=== PATIENT | female | born 1940 | race Caucasian/White ===

== ENCOUNTER 2017-01-23 07:10 | Day surgery (SDC) | payer OTHER ==
[~2017-01-23] VITALS: Ht 154.9 cm; Wt 77.1 kg
[~2017-01-23 07:10] MED LIST: ACET325T51 PO; ALBU8.5H2 INHALATION; AMLO10TA3 PO; ASCO1500 PO; ASPI-973 PO; ATOR80TA PO; CARV25TA2 PO; CHOL100043 PO; CYAN500 PO; DOXA2TAB52 PO; EZET10TA PO; GLUC100016 PO; GUAI600T2 PO; INSU100V7 SUBQ; LORA10CA9 PO; Lactated Ringer's 1,000 ML IV ONE; MAGN64TA7 PO; METF500T4 PO; METF850T2 PO; MOME13HF3 IH; MULT-1018 PO; NAPR500T PO; OLP.1OP5 OCULAR; PYR50 PO; SPIR25TA3 PO; TOPI200T7 PO; [UNRECOGNIZED DRUG - OTHER] SUBQ
[2017-01-23] MEDS ORDERED: Glycopyrrolate 0.2 MG/ML 1mL Inj ONE (07:11)
[2017-01-23] MEDS ORDERED: Ketamine 10 mg/mL 20 mL Inj ONE (07:11)
[2017-01-23] MEDS ORDERED: Propofol 10,000 mCg/mL 20 mL Inj ONE (07:11)
[2017-01-23] MEDS ORDERED: Ondansetron 2 mg/mL 2 mL Inj ONE (07:11)
[2017-01-23 07:43] VITALS: BP 142/71; PULSE 57; RESP 16; O2SAT 95
--- NOTE | 2017-01-23 07:54 | PCM.HPANE ---
Patient Data Date of Service: Jan 23, 2017 Surgeon Admitting Provider: Attending Provider:David Yuen MD Primary Care Physician:Grace Velasquez MD Other Provider:Prieto Velázquez Anesthesia Reason for Visit Colon Polyp Ht/WT & BMI Height (Feet): 5 Height (Inches): 1 Weight (Kilograms): 77.11 Body Mass Index 32.00 Allergies Coded Allergies: Opioids - Morphine Analogues (Verified Allergy, Unknown, 01/22/17) JANIYA Inhibitors (Verified Adverse Reaction, Intermediate, KIDD, 01/22/17) Uncoded Allergies: narcotics (Allergy, Severe, "severe hallucinations, confusion", 08/26/11) Past Anesthesia History Anesthesia History: Denies:: Abnormal Airway, Anesthesia Reactions, Difficult Intubation, Fam Anesthesia Reaction, Fam Malignant Hypertherm, Malignant Hyperthermia Diabetes History Hx Diabetes?: Yes Type of Diabetes: Type II Glycemic Control: Insulin & Oral Medication Current Bedside Blood Glucose: 101 MRSA MRSA: No Medications Blood Thinner: Aspirin Last Dose Blood Thinner: Jan 22, 2017 Home Meds Incl Beta Silvano: Yes Date Beta Silvano Taken: Jan 22, 2017 Time Beta Silvano Taken: 1200 Reported Medications Olopatadine (Patanol)5 Ml Soln5 Ml OCULAR 01/22/17 Ezetimibe (Zetia)10 Mg Bwvdcd91 Mg PO DAILY 30 Days Ref 0 01/22/17 Cholecalciferol (Vitamin D3) (Vitamin D)1,000 Unit Tablet5,000 Unit PO DAILY #1 BOTTLE Ref 0 01/22/17 Ascorbic Acid (Vitamin C)1,500 Mg Tablet.er1,000 Mg PO DAILY 01/22/17 Pyridoxine (Vitamin B-6)50 Mg Qkhjmh133 Mg PO DAILY 01/22/17 Cyanocobalamin (Vitamin B12)500 Mcg Qxutpm961 Mcg PO DAILY 01/22/17 Acetaminophen 325 Mg Tablet1,000 Mg PO Q4H PRN For Fever Ref 0 01/22/17 Topiramate 200 Mg Fimvpe902 Mg PO BID Ref 0 01/22/17 Spironolactone 25 Mg Xctzpv74 Mg PO DAILY #30 TABLET Ref 0 01/22/17 Naproxen (Naprosyn)500 Mg Wydcqo307 Mg PO BID PRN For Pain Ref 0 01/22/17 Multivitamin (Multi Vitamin Daily)1 Each Tablet1 Each PO DAILY 30 Days Ref 0 01/22/17 Guaifenesin (Mucinex)600 Mg Tablet.er600 Mg PO BID 01/22/17 Metformin 850 Mg Wcbncd995 Mg PO BID Ref 0 01/22/17 Metformin 500 Mg Tablet1,000 Mg PO BID Ref 0 01/22/17 Magnesium Chloride (Mag64)64 Mg Tablet.er64 Mg PO TID 01/22/17 Loratadine 10 Mg Ugfoyin02 Mg PO DAILY 01/22/17 [lispro Prc] No Conflict Zcdsp54-60 Units SUBQ TID 01/22/17 Insulin Glargine (Lantus U100 Insulin Vial)100 Unit/Ml Vial1 Unit SUBQ BID #1 VIAL Ref 0 01/22/17 Glucosamine Sulfate 2Kcl (Glucosamine)1,000 Mg Tablet1,000 Mg PO BID 01/22/17 Doxazosin (Cardura)2 Mg Tablet2 Mg PO TID Ref 0 01/22/17 Carvedilol 25 Mg Uxwbyt32 Mg PO TID Ref 0 01/22/17 Atorvastatin (Lipitor)80 Mg Pinpjh27 Mg PO DAILY Ref 0 01/22/17 Aspirin 81 Mg Aggzyd99 Mg PO DAILY Ref 0 01/22/17 Mometasone Furoate (Asmanex Hfa)100 Mcg/Actuation Hfa.aer.ad13 Gm IH 01/22/17 Amlodipine 10 Mg Abvjuv63 Mg PO DAILY Ref 0 01/22/17 Discontinued Reported Medications Albuterol HFA (Proair HFA)8.5 Gm Hfa.aer.ad2 Puffs INHALATION Q4H #1 INHALER 01/22/17 Magnesium Chloride-Expunged Drug, Do Not Tim (Bytf-Bvd-Mmalebum Drug, Do Not Renew!)64 Mg Tabcr64 Mg PO DAILY 09/02/11 Carvedilol-Expunged Drug, Do Not Renew! 25 Mg Xnlkda84.5 Mg PO BID Take 1 1/2 tablet twice a day 09/02/11 AmLODIPine-Expunged Drug, Do Not Renew! 5 Mg Tablet5 Mg PO BID 09/02/11 Acetaminophen-Expunged Drug, Do Not Renew! (Tylenol-Expunged Drug, Do Not Renew! )325 Mg Clwjwe272 Mg PO PRN PRN 09/02/11 Levothyroxine-Expunged Drug, Do Not Renew! (Synthroid-Expunged Drug, Do Not Renew!)75 Mcg Wlllnb04 Mcg PO DAILY 09/02/11 Doxazosin-Expunged Drug, Do Not Renew! 2 Mg Tablet3 Mg PO BID Take 1 1/2 tablets twice a day 09/02/11 Haloperidol-Expunged Drug, Do Not Renew! (Haldol-Expunged Drug, Do Not Renew!)1 Mg Tab1 Mg PO HS Take at bedtime to help you sleep. 08/29/11 PEG 3350-Expunged Drug, Do Not Renew! (Miralax-Expunged Drug, Do Not Renew!)17 Gm/Pkt Lomeff96 Gm PO DAILY Mix packet in juice or water and drink daily. Do not take if you have 2 stools already that day. 08/29/11 Furosemide-Expunged Drug, Do Not Renew! (Lasix-Expunged Drug, Do Not Renew!)20 Mg Dhkubp24 Mg PO DAILY 08/29/11 Spironolactone-Expunged Drug, Do Not Renew! 25 Mg Fisppb89 Mg PO DAILY 08/29/11 Fluticasone-Expunged Drug, Do Not Renew! (Flovent Hfa-Expunged Drug, Do Not Renew!)10.6 Gm Aer.w.adap2 Puffs IH DAILY 08/26/11 Cholecalciferol-Expunged Drug, Do Not Renew! (Vitamin D3-Expunged Drug, Do Not Renew!)10,000 Unit Capsule5,000 Unit PO DAILY 08/26/11 Folic Acid-Expunged Drug, Do Not Renew! 0.4 Mg Tablet0.4 Mg PO DAILY 08/26/11 Fexofenadine-Expunged Drug, Choose New Med! 60 Mg Odzzmu10 Mg PO PRN as needed. 08/26/11 [Estrace 0.01% Crm] No Conflict Check Qw 08/26/11 Glucosamine Hcl 500 Mg Tablet1,500 Mg PO BID 08/26/11 [Nasonex 50mcg] No Conflict Check2 Sprays NS DAILY 08/26/11 Atorvastatin-Expunged Drug, Do Not Renew! 40 Mg Evfpxv88 Mg PO HS 08/26/11 Tocopherol-Expunged Drug, Do Not Renew! (Vitamin E-Expunged Drug, Do Not Renew!) 400 Unit Pgs076 Unit PO DAILY 08/26/11 [Vitamin B6] No Conflict Check1,000 Mg PO DAILY 08/26/11 Ezetimibe (Zetia)10 Mg Wccaix16 Mg PO DAILY 01/15/11 Ascorbic Acid-Expunged Drug, Do Not Renew! (Vitamin C-Expunged Drug, Do Not Renew!)1,000 Mg Tab.chew1,000 Mg PO DAILY 01/15/11 Cyanocobalamin (B-12)-Expunged Drug, Do Not R (Vitamin G-48-Hpzimbgk Drug, Do Not Renew!)250 Mcg Tab.sgpo156 Mcg PO DAILY 01/15/11 Olopatadine-Expunged Drug, Do Not Renew! (Patanol-Expunged Drug, Do Not Renew!) 5 Ml Drops2 Gtts OP BID PRN 01/15/11 Multivitamin (Daily Value)1 Each Tablet1 Each PO DAILY 01/15/11 Metformin-Expunged Drug, Do Not Renew! 850 Mg Hqaqml295 Mg PO BID 01/15/11 Insulin Lispro-Expunged Drug, Do Not Renew! (Humalog-Expunged Drug, Do Not Renew !)100 U/Ml Vial Sq Prn SLIDING SCALE 01/15/11 Insulin Glargine-Expunged Drug, Do Not Renew! (Lantus-Expunged Drug, Do Not Renew!)100 U/Ml Uuaeporer54 U Sq Hs 01/15/11 Aspirin-Expunged Drug, Do Not Renew! ([place] Aspirin-Expunged Drug, Do Not Renew)81 Mg Tab.chew81 Mg PO DAILY 01/15/11 Albuterol-Expunged Drug, Do Not Renew! 8.5 Gm Hfa.aer.ad2 Puffs IH QID PRN Take 2 puffs every 4 hours as needed for sohortness of breath 01/15/11 History History of ENT Problems?: No HEENT History: Denies:: Abnormal Airway Difficult Intubation Dysphagia Hearing Problem Denture Type: None Teeth Condition: Tooth Decay Hx of Heart Problems?: Yes Cardiovascular History: Positive for:: Cardiac Surgery (heart cath 2010, AVR 2010) Heart Murmur Hypertension Valvular Heart Disease (AVR 2010) Denies:: AICD Atrial Fibrillation Chest Pain Congestive Heart Failure Edema Irregular Heartbeat Pacemaker Thrombophlebitis Hx of Respiratory Problem?: Yes Respiratory History: Positive for:: Asthma Dyspnea Use of C-PAP Machine Use of Inhalers / NEBS Denies:: COPD Chest Surgery Cough Emphysema Hemoptysis Pneumonia Tuberculosis Other Resp Pertinent History: ALBUTEROL daily; productive cough x3 months Hx Neurologic Problems?: Yes Neurological History: Denies:: Alzheimer's Disease CVA Dementia Dizziness Headaches Parkinson's Disease Seizures TIA Hx of GI Problems?: Yes Gastrointestinal History: Denies:: Gastroesphageal Reflux Hx of Problems?: No Female Hx: Positive for:: Problems with Breasts? (hx of right breast lumpectomy) Denies:: Currently Endometriosis Pelvic Inflammatory Hx Musculoskeletal Problems?: Yes Musculoskeletal History: Positive for:: Back Injury (hx of low back pain) Musculoskeletal Trauma (hx of fx left foot 1988, fx left arm 1997) Denies:: Fibromyalgia Joint Replacement Hx of Psycho/Social Problems?: No Psycho Social History: Denies:: Anxiety Hx Depression Hx Surgeries?: Yes (LUMPECTOMY, AORTIC VALVE REPLACED) Hx Any Other Health Problems?: Yes Other History: Positive for:: Hospitalization Thyroid Disease (hypo) Denies:: Cancer Endocrine Disease History Blood Transfusions: Denies:: Blood Transfuse Reaction Blood Transfusions Hx Diabetes: YesBedside Blood Glucose: 101 Other Pertinent History: DIABETIC Hx Alcohol Use: NoHx Substance Use: No Smoking Status: Never Smoker Have You Smoked inLast 12 mo: No Stop/Bang Treated for Sleep Apnea?: Yes Do You Have a CPAP Machine?: Yes DARIN Risk Assessment: High Risk, =/>3 Yes Risk Assessment Category Category 1A: Patient has history of documented sleep apnea, and HAS NOT received any narcotic, sedative or anesthesia administration during this stay. Category 1B: Patient has history of documented sleep apnea, and HAS received any narcotic , sedative or anesthesia administration during this stay Category 2: Patient has SUSPECTED Obstructive Sleep Apnea, and HAS received any narcotic , sedative or anesthesia administration during this stay. Category 3: Patient has SUSPECTED Obstructive Sleep Apnea and HAS NOT received narcotic, sedative or anesthesia administration during this stay. Category 4: Outpatient in Procedural Areas with known sleep apnea or who screen positive for High Risk via the STOP/BANG questionnaire. Exam Exam Vital Signs Vital Signs Date Time Temp Pulse Resp B/P Pulse Ox O2 Delivery O2 Flow Rate FiO2 01/23/17 07:43 57 16 142/71 95 Room Air General Appearance: Alert, Oriented X3, Cooperative, No Acute Distress HEENT/AIRWAY: MP 3, Neck Movement (FROM), Mouth Opening (3), Other (TMD<3) Lungs: Normal Air Movement Heart: Exam Unremarkable, Regular Rate/Rhythm, Normal S1, Normal S2, No Murmurs /Rubs/Gallops Meds/Labs/Diagnostics Admission Meds Current Medications Lactated Ringer's (Lr) 1,000 ml @ 10 mls/hr Q24H ONCE IV Last administered on 01/23/17t 07:43; Start 01/23/17 at 06:00; Stop 01/24/17 at 05:59 Bedside Blood Glucose: 101 Plan Impression Patient chart reviewed, patient interviewed and anesthestic plan with risks, benefits, and alternatives discussed, and informed consent obtained. NPO per Anesth. Guidelines: Yes ASA Physical Status: ASA3 Severe Disease Anesthetic Plan: TIVA Bene/Risks/Altern/Consents: Yes HP Complete Prior to Induction: Yes Tony Euceda MD Jan 23, 2017 07:54
[2017-01-23 08:36] VITALS: BP 122/65; PULSE 67; RESP 14; O2SAT 94
[2017-01-23 08:45] VITALS: BP 131/66; PULSE 64; RESP 14; O2SAT 95
[2017-01-23 08:49] VITALS: BP 137/65; PULSE 64; RESP 14; O2SAT 97
--- NOTE | 2017-01-23 09:36 | ENDO ---
[address] [address] ENDOSCOPY PROCEDURE PATIENT: ERICK HAGAN : 1940 MR#: [id number] ADMIT: 01/23/2017 JOB ID: [id number] DATE OF SERVICE: 01/23/2017 PREOPERATIVE DIAGNOSIS: Personal history of colon polyps. POSTOPERATIVE DIAGNOSIS(ES): 1. Small cecal polyp. 2. Sigmoid diverticulosis. OPERATION: Colonoscopy to cecum with ablation of cecal polyp. SURGEON: David Yuen MD. INDICATIONS: A 76-year-old female with multiple medical comorbidities, but has a personal history of colon polyps. She is here for follow up colonoscopy. FINDINGS: She had a good prep and the scope was advanced to the cecum with clear visualization of the appendix. Attempts to enter the terminal ileum were unsuccessful. In the cecum there is a small approximately 2-3 mm polyp. I elected to use a snare with cautery. I essentially ablated it. The polyp was completely destroyed. There was no tissue to send to Pathology. It was the only polyp identified. She had mild sigmoid diverticulosis. Retroflexed views of the rectum were normal. DESCRIPTION OF PROCEDURE: The procedure and sedation plan was discussed with the patient and nursing staff and a procedural time-out was held. Dr. Tony Euceda provided sedation. A digital rectal exam was performed. Then, the Olympus PCF-H180AL video colonoscope was passed transanally, advanced to the cecum where the polyp ablation was performed as stated above. There is no bleeding from the site. The scope was withdrawn over 11 minutes 59 seconds. No other polyps were identified. Retroflexed views of the rectum were obtained. IMPRESSION: Small cecal polyp grossly consistent with an adenomatous polyp. RECOMMENDATIONS: Repeat colonoscopy in five years.
--- NOTE | 2017-01-23 12:58 | PCM.ANEP1 ---
Post Anesthesia PACU Phase 1 Assessment Date of Service: Jan 23, 2017 Vital Signs Vital Signs Date Time Temp Pulse Resp B/P Pulse Ox O2 Delivery O2 Flow Rate FiO2 01/23/17 08:49 64 14 137/65 97 Room Air 01/23/17 08:45 64 14 131/66 95 Room Air 01/23/17 08:36 67 14 122/65 94 Room Air 01/23/17 07:43 57 16 142/71 95 Room Air Anesthetic Administered: TIVA Level of Alertness: Awake, talking ANAYA's with Equal Strength: Yes Pain: No Pain Scale Score: 0 Nausea or Vomiting: No CV Function & Hydration Stable: Yes Airway Device: none Lungs: Normal Air Movement Summary 01/23/17 08:49 64 14 137/65 97 Room Air PACU Phase 2 Assessment Complications: No Follow up Care: N/A Patient Instructions Provided: N/A Tony Euceda MD Jan 23, 2017 12:58
== END 2017-01-23 23:59 | disposition home or self-care (01) ==
LOC: END 07:10
PROVIDERS: ATTEND Surgery
DX: Z12.11 Encounter for screening for malignant neoplasm of colon (principal); K63.5 Polyp of colon; K57.30 Diverticulosis of large intestine without perforation or abscess without bleeding; Z86.010 Personal history of colon polyps; Z79.82 Long term (current) use of aspirin; Z79.4 Long term (current) use of insulin; Z79.84 Long term (current) use of oral hypoglycemic drugs; Z79.899 Other long term (current) drug therapy; Z88.5 Allergy status to narcotic agent; Z88.8 Allergy status to other drugs, medicaments and biological substances
CPT/HCPCS: 45385; J2250; J2405; J7120